=== PATIENT | male | born 1985 | race African-American/Black ===

== ENCOUNTER 2021-07-04 08:43 | Emergency (ER) | payer OTHER ==
[2021-07-04 08:52] VITALS: BP 149/84
--- NOTE | 2021-07-04 09:06 | ED Physician Documentation ---
History of Present Illness - Stated complaint Stated Complaint: RECTAL RASH - Chief complaint Chief Complaint: General - History obtained from History obtained from: Patient - History of Present Illness Timing: How many days ago (several days) - Additonal information Additional information: Patient is a 36-year-old male who presents to the emergency department stating that he has had "bumps" near his anal area. This been ongoing for the past several days. Mild itching. No burning. Tried hemorrhoid cream without relief. Denies any history of anal intercourse. Nothing makes it better or worse. Review of Systems Constitutional: denies: Fever, Chills GI: denies: Vomiting Skin: denies: Rash Musculoskeletal: denies: Neck pain, Back pain Neurologic: denies: Headache PD PAST MEDICAL HISTORY - Past Medical History Past Medical History: No - Past Surgical History Past Surgical History: No - Present Medications Home Medications: Ambulatory Orders Medication Instructions Recorded Confirmed No Known Home Medications 07/04/21 07/04/21 - Allergies Allergies/Adverse Reactions: Allergies Allergy/AdvReac Type Severity Reaction Status Date / Time No Known Drug Allergies Allergy Verified 07/04/21 08:47 - Living Situation Living Situation: reports: With family Living Arrangement: reports: At home - Social History Does the pt smoke?: No Does the pt have substance abuse?: No - Family History Family history: reports: Non contributory PD ED PE NORMAL - Vitals Vital signs reviewed: Yes - General General: Alert and oriented X 3, No acute distress - HEENT HEENT: Moist mucous membranes - Neck Neck: Supple, no meningeal sign - Respiratory Respiratory: No respiratory distress - Rectal Rectal: Other (mild anal warts) - Derm Derm: Warm and dry - Neuro Neuro: Alert and oriented X 3 - Psych Psych: Normal mood, Normal affect Results - Vitals Vitals: Vital Signs - 24 hr 07/04/21 07/04/21 08:48 09:21 Temperature 36.7 C 36.7 C Heart Rate 81 81 Respiratory 16 16 Rate Blood Pressure 149/84 H 149/84 H O2 Saturation 97 97 Oxygen O2 Source Room air PD MEDICAL DECISION MAKING - ED course Complexity details: considered differential, d/w patient ED course: Patient with anogenital warts. We will have him follow-up with his PCP for treatment. Patient counseled regarding signs and symptoms for which I believe and urgent re-evaluation would be necessary. Patient with good understanding of and agreement to plan and is comfortable going home at this time This document was made in part using voice recognition software. While efforts are made to proofread this document, sound alike and grammatical errors may occur. 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 These topical treatments are mildly effective, but cryotherapy, electro surgery or trichloracetic acid are more likely to improve the situation. Laser therapy can also be used. Please follow-up with your doctor for further treatment. Discharge Date/Time: 07/04/21 09:23
== END 2021-07-04 09:23 | disposition home or self-care (01) ==
LOC: ED 08:43
DX: A63.0 Anogenital (venereal) warts (principal)
CPT/HCPCS: 99281; 99282

== ENCOUNTER 2022-01-02 10:28 | Outpatient (CLI) | payer OTHER ==
[2022-01-02 11:10] VITALS: BP 140/94
--- NOTE | 2022-01-02 11:10 | SLEEP CARE CONSULTATION ---
Information from patient questionnaire entered by Enrique Monroy. I have reviewed and concur with the information entered by Enrique Monroy. This document represents the service I personally performed and the decisions made by me, Isabela Costa ARNP. History of Present Illness Service Date and Time: 01/02/2022 1028 Reason for Visit: New patient Chief Complaint: reports: Snoring, Excessive daytime sleepiness, Observed pauses in breathing, Fatigue, Frequent awakenings at night Date of Onset: 2-3 years Usual bedtime: [id number] Time it takes to fall asleep: not long , few minutes Snores at night: Yes Observed to quit breathing while asleep: Yes Sleeps alone due to snoring: Yes Number of times waking at night: 3 Reasons for waking at night: reports: Snoring, Gasping for air Toss, Turn, or Twitch while sleeping: Yes Recalls having dreams: No Usually gets out of bed at: 0400am; weekends 0500 Feels refreshed in the morning: No Morning headache: Yes (2-3 times a week that resolves in a couple hrs) Sleepy or fatigued during the day: Yes Ever fallen asleep while driving: No Takes day naps: No Dreams during day naps: No Prior sleep studies: No Additional HPI information: I had the pleasure of seeing TRUNG PARISI today regarding the possibility of him having a sleep disorder. His current complaints are snoring, excessive daytime sleepiness, observed pauses in breathing, fatigue and frequent night awakenings. He states he came because he is not getting much sleep because he is waking up at least four times a night. He is waking up with a very dry throat. He has seen some swelling in back of his throat. He has been told he snores loudly and has pauses in breathing that his has noted. He has woke up at least twice that he can remember gasping for air. He states he wakes up feeling tired and is very tired throughout the day. 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 Patient is and lives in [place]. Have you smoked in the past 12 months: No Alcohol use: Yes Alcohol amount and frequency: 1 cocktail every couple weeks Caffeine use: Yes Caffeine amount and frequency: 2 cups every morning Family History Family history of sleep disordered breathing: Yes Family Hx Sleep Apnea: Mother: Snoring, Sleep apnea - Treated, Father: Snoring, Sleep apnea - Treated Allergies and Home Medications Known drug allergies: No Drug allergies reviewed: Yes (NKDA) Home medication list reviewed: Yes Allergy and home medication list: Allergies No Known Drug Allergies Allergy (Verified 09/12/21 23:10) Medications: allergy medications, does not know name, takes as needed Review of Systems Weight gain over past 5 years: 30 Cardiovascular: denies: high blood pressure Respiratory: reports: shortness of breath, wheeze Neurological: reports: headaches Psychiatric: denies: anxiety, depression Ear/Nose/Throat: reports: nasal congestion, sinus problems, dry mouth/throat (occasionally in morning), wisdom teeth removed. denies: tonsillectomy Musculoskeletal: reports: back pain Immunologic: reports: allergies to food or environment (seasonal allergies) Physical Exam Vital signs obtained and entered by: ENRIQUE Anderson MA Blood Pressure: 140/94 (left arm) Cuff size: regular Heart Rate: 82 O2 Saturation: 95 Height: 5 ft 5 in Weight: 212 lb 12.8 oz Body Mass Index: 35.4 BMI Classification: Obese Neck circumference: 17 (inches) Mouth and throat: narrow oropharynx Soft palate: normal Hard palate: normal Uvula: normal Uvula visualization: 25% Mallampati Class III Tongue: normal in size Tonsils: 1+ Neck: normal w/o lymphadenopathy or thyromegaly Heart: regular rate and rhythm Lungs: clear bilaterally Impression and Plan 1. Suspected Obstructive Sleep Apnea-Hypopnea Syndrome, as suggested by a history of loud and irregular snoring, observed cessation of breath while asleep, gasping or choking in sleep, morning headache, frequent awakening during the night, unrefreshed sleep, cognitive impairment, and excessive daytime sleepiness. Narrow oropharynx and obesity are common predisposing factors for obstructive sleep apnea-hypopnea syndrome. I recommend proceeding to polysomnography to confirm the diagnosis and to assess severity. If the patient has significant sleep disordered breathing, a manual CPAP titration study will also be performed to find the optimal treatment pressure. I informed the patient of what the sleep studies involve and after some discussion, obtained agreement to proceed. The pathophysiology of obstructive sleep apnea-hypopnea syndrome was discussed with the patient and health risks of cardiovascular and cerebrovascular disease if not treated. 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 Patient agreed to plan. * Schedule polysomnography * Avoid long distance driving or driving when feeling sleepy. * Avoid alcohol, sedative and muscle relaxant around bedtime. * Attempt to lose weight. * Review instructions provided by trained office staff on how to prepare for the sleep study. * Return for follow-up after sleep study completed. Counseling Topics: Weight loss health impact Visit Type: In Office Time Spent with Patient (minutes): 31 Provider Statement: I spent 100% of the Face to Face Visit with the patient with greater than 50% spent counseling the patient and coordination of care.
== END 2022-01-02 10:29 | disposition home or self-care (01) ==
LOC: SC 10:28
PROVIDERS: ATTEND Nurse Practitioner Family
DX: R06.83 Snoring (principal); G47.8 Other sleep disorders; R06.81 Apnea, not elsewhere classified; R51.9 Headache, unspecified; G47.10 Hypersomnia, unspecified; R53.83 Other fatigue; E66.9 Obesity, unspecified; Z68.35 Body mass index [BMI] 35.0-35.9, adult
CPT/HCPCS: 99203; 99212

== ENCOUNTER 2022-01-18 20:39 | Outpatient (CLI) | payer OTHER | END 2022-01-18 20:40 | disposition home or self-care (01) | LOC: SC 20:39 | PROVIDERS: ATTEND Nurse Practitioner Family | DX: G47.33 Obstructive sleep apnea (adult) (pediatric) (principal) | CPT/HCPCS: 95810 ==

== ENCOUNTER 2022-02-20 10:53 | Outpatient (CLI) | payer OTHER ==
--- NOTE | 2022-02-20 10:45 | SLEEP CARE CONSULTATION ---
Information from patient questionnaire entered by Yolanda Monroy. I have reviewed and concur with the information entered by Yolanda Monroy. This document represents the service I personally performed and the decisions made by me, Isabela Costa ARNP. History of Present Illness Service Date and Time: 02/20/2022 1040 Initial [place] Sleepiness Scale score: 18 (12/26/2021) Current [place] Sleepiness Scale score: 21 (02/20/22) Additional HPI information: TRUNG PARISI returns via video telehealth visit for follow up and results of the recently performed polysomnography. I explained the pathophysiology behind obstructive sleep apnea. We then spent quite a bit of time discussing different treatment options. For mild obstructive sleep apnea, surgery and oral appliance are alternatives to nasal CPAP therapy but in moderate or severe cases, nasal CPAP is the most effective and reliable treatment. I reviewed the impact of weight changes on sleep apnea and strongly recommended losing weight. After some discussion, the patient opted to go with the nasal CPAP therapy. Nasal autoCPAP set at 4-15 cmH20 will be ordered with rationale explained. A manual titration study will be ordered if unable to find optimal pressure with office adjustments. I explained how CPAP machine works and what to expect when using the machine. Using CPAP every night in order to get used to it was emphasized. Patient advised to put CPAP mask on before getting into bed so as not to fall asleep without CPAP. To assist acclimation to CPAP use, it could also be used for a short time during day while reading or watching TV. The patient was instructed to call the CPAP supplier to discuss any mechanical problem that may occur. If the mask given is uncomfortable or is difficult to keep on through the night even with adjustment, contact the CPAP supplier as many will replace with another mask style if notified before 30 days. If snoring or perceives is not getting enough air or too much air from the machine, notify this office. Patient counseled not drink alcohol less than 4 hours before bedtime as it can increase snoring and apnea. Patient was cautioned about risks of drowsy driving until sleepiness symptoms resolve. Patient denies drowsy driving. Sleep Study - Results Type of Sleep Study: Polysomnography (COMPLETED 01/18/22) Prior sleep studies: No Polysomnography/Home Sleep Study results: IMPRESSION: The quality of the study is good. The patient had normal sleep efficiency. The sleep architecture was abnormal for sleep fragmentation and reduced amount of time spent in slow wave sleep (N3). Respiratory monitoring showed severe obstructive sleep apnea-hypopnea (AHI = 38.6) associated with frequent arousals, oxyhemoglobin desaturation and moderate hypoxia (shakeel oxygen saturation of 71% ). Baseline oxygen saturation was normal. The patient only slept supine during this study (supine AHI = 38.6; non-supine = 0.00). Snore was moderate to loud in intensity. There was no significant periodic leg movement of sleep. Cardiac rhythm was normal sinus rhythm without significant arrhythmia. No abnormal behavior (parasomnia) observed during the night. Allergies and Home Medications Drug allergies reviewed: Yes (NKDA) Home medication list reviewed: Yes (no changes) Review of Systems Review of systems same as previous: Yes (no changes) Physical Exam Vital signs obtained and entered by: VIA PHONE Height: 5 ft 5 in (PER PT) Weight: 185 lb (PER PT) Body Mass Index: 30.7 BMI Classification: Obese Impression and Plan 1. Obstructive Sleep Apnea-Hypopnea Syndrome, severe, with lowest oxygen saturation of 71%. Obviously this is the cause of the patients symptoms of unrefreshed sleep, and excessive daytime sleepiness. As mentioned above, the patient will be started on nasal autoCPAP therapy with pressure set at 4-15 cmH2 O. Compliance guidelines also reviewed. A copy of compliance guidelines will be given for reference at check out. Because the apnea is more severe supine, I instructed to avoid sleeping supine using pillow positioning until able to start CPAP use. 2. Hypoxemia, moderate, with a shakeel oxygen saturation of 71% and 19.9 minutes spent under 90%. His baseline oxygen saturation was normal with an average oxygen saturation of 94%. 3. Obesity, unspecified. Currently patients BMI is 30.7. Obesity increases the risk of apnea, CPAP pressure requirements and overall health risks especially cardiovascular and diabetes. Thus patient is advised to lose weight. Weight loss can be done with reducing portion size, reducing refined foods and balancing content with vegetables, fruit and whole grain foods. In addition, patient encouraged to get regular exercise. * Nasal auto CPAP therapy, pressure at 4-15 cm H2O. * Attempt to lose weight. * Avoid alcohol consumption near bedtime. * Avoid supine sleep until using CPAP. * The patient is again cautioned about driving until sleepiness completely resolves. * Return one month after CPAP obtained. I will assess response to therapy and compliance at that time. Counseling Topics: Weight loss health impact Prescriptions: Auto CPAP Visit Type: Telehealth Video Video Type: Doximity Patient Location: Home Location of Provider: Office Patient agrees and consents to this telehealth visit type: Yes Patient agrees to have their insurance billed: Yes Time Spent with Patient (minutes): 21 Provider Statement: I spent 100% of the Telehealth Video Call with the patient with greater than 50% spent counseling the patient and coordination of care.
== END 2022-02-20 10:54 | disposition home or self-care (01) ==
LOC: SC 10:53
PROVIDERS: ATTEND Nurse Practitioner Family
DX: G47.33 Obstructive sleep apnea (adult) (pediatric) (principal); R09.02 Hypoxemia; E66.9 Obesity, unspecified; Z68.30 Body mass index [BMI] 30.0-30.9, adult

== ENCOUNTER 2022-05-21 17:28 | Emergency (ER) | payer OTHER ==
[2022-05-21 18:04] LABS: RAPID STREP SCREEN Negative (Negative)
--- NOTE | 2022-05-21 18:08 | ED Physician Documentation ---
History of Present Illness - Stated complaint Stated Complaint: CHILLS,THROAT PX,COUGH - Chief complaint Chief Complaint: General - Additonal information Additional information: 37-year-old male presents to the emergency department for evaluation of 1 week cough, congestion sore throat chills and myalgias. Seen at a local walk-in clinic and tested negative for COVID. States he was given Tessalon Perles and an inhaler without relief of symptoms. Today had a fever higher than 102 and presents here. Denies any history of hypertension or diabetes. Non-smoker. Review of Systems Constitutional: reports: Fever, Myalgias, Fatigue Eyes: reports: Reviewed and negative Nose: reports: Congestion Throat: reports: Sore throat Cardiac: reports: Reviewed and negative Respiratory: reports: Dyspnea, Cough. denies: Hemoptysis, Wheezing GI: reports: Reviewed and negative : reports: Reviewed and negative PD PAST MEDICAL HISTORY - Past Medical History Respiratory: Asthma - Past Surgical History Past Surgical History: No - Present Medications Home Medications: Ambulatory Orders Medication Instructions Recorded Confirmed Albuterol Sulf [Ventolin Hfa 1 - 2 puffs INH Q4HR PRN #1 inhaler 09/13/21 05/21/22 Inhaler] Azithromycin [Zithromax] 0 mg PO DAILY #6 tablet 05/21/22 - Allergies Allergies/Adverse Reactions: Allergies Allergy/AdvReac Type Severity Reaction Status Date / Time No Known Drug Allergies Allergy Verified 05/21/22 17:36 - Social History Does the pt smoke?: No Smoking Status: Never smoker Does the pt drink ETOH?: Yes Does the pt have substance abuse?: No - POLST Patient has POLST: No PD ED PE NORMAL - General General: Alert and oriented X 3, No acute distress, Well developed/nourished - HEENT HEENT: Atraumatic, Moist mucous membranes. No: Pharynx benign (Mild posterior oropharynx erythema without exudate) - Neck Neck: Supple, no meningeal sign, No adenopathy - Cardiac Cardiac: RRR, No murmur - Respiratory Respiratory: No respiratory distress, Clear bilaterally - Abdomen Abdomen: Normal bowel sounds, Soft Results - Vitals Vitals: Vital Signs - 24 hr 05/21/22 05/21/22 17:39 17:54 Temperature 37.4 C Heart Rate 115 H Respiratory 24 18 Rate Blood Pressure 131/84 H O2 Saturation 98 99 Oxygen O2 Source Room air - Labs Labs: Laboratory Tests 05/21/22 05/21/22 17:45 17:45 Nasal Adenovirus (PCR) NOT DETECTED Nasal B. parapertussis DNA (PCR) NOT DETECTED Nasal Coronavir 229E PCR NOT DETECTED Nasal Coronavir HKU1 PCR NOT DETECTED Nasal Coronavir NL63 PCR NOT DETECTED Nasal Coronavir OC43 PCR NOT DETECTED Nasal Enterovir/Rhinovir PCR NOT DETECTED Nasal Influenza B PCR NOT DETECTED Nasal Influenza A PCR NOT DETECTED Nasal Parainfluen 1 PCR NOT DETECTED Nasal Parainfluen 2 PCR NOT DETECTED Nasal Parainfluen 3 PCR NOT DETECTED Nasal Parainfluen 4 PCR NOT DETECTED Nasal RSV (PCR) NOT DETECTED Nasal B.pertussis DNA PCR NOT DETECTED Nasal C.pneumoniae (PCR) NOT DETECTED Jaya Human Metapneumo PCR DETECTED A Nasal M.pneumoniae (PCR) NOT DETECTED Nasal SARS-CoV-2 (PCR) NOT DETECTED Group A Strep Rapid Negative - Rads (name of study) cxr Relevant Findings:: Final report received (No acute cardiopulmonary process) PD Medical Decision Making - ED course Complexity details: reviewed results, re-evaluated patient, considered differential, d/w patient ED course: 37-year-old male presents emergency department for evaluation 1 week cough congestion and sore throat. Began having fevers today higher than 102. He was seen at a local walk-in and recently tested negative for COVID-19. Here in the emergency department he appears as though he does not feel well though cardiopulmonary auscultation was entirely unremarkable. His vital signs show some mild tachycardia but no hypotension or fever. A 2 view chest x-ray shows no acute cardiopulmonary findings. Rapid strep was negative. Respiratory PCR was positive for human metapneumovirus. However given the worsening cough after 1 week with new fevers is appropriate to treat for bronchitis and therefore prescription for azithromycin is going to be sent to the pharmacy. Patient can continue Tessalon Perles and albuterol. This plan of finding was communicated with patient and his . He is discharged home in stable condition with usual emergent return precautions discussed. Departure - Departure Disposition: 01 Home, Self Care Clinical Impression: Bronchitis, Infection due to human metapneumovirus (hMPV) Prescriptions: Azithromycin [Zithromax] 0 mg PO DAILY #6 tablet Comments: You are seen today in the emergency department for a cough that has not improved over the last week and you have developed some new fevers. The chest x-rays do not show any findings of pneumonia. Your viral testing was positive for human metapneumovirus. This is a variant of a virus that causes the common cold. The rapid strep testing was negative. However because her cough has not improved after a week and you are developing new fevers we will start you on a prescription of azithromycin to help treat bronchitis. You can continue the albuterol and Tessalon Perles. You are advised stay home drink plenty of fluids. I would anticipate your symptoms are getting better over the next 5 to 7 days. If at any point you find that your symptoms are worsening, you have severe shortness of air or chest pain then please return immediately to the ER for second evaluation
--- NOTE | 2022-05-21 18:22 | XRAY Report ---
PROCEDURE: Chest 2 View X-Ray INDICATIONS: cough TECHNIQUE: 2 views of the chest were acquired. COMPARISON: None. FINDINGS: Surgical changes and devices: None. Lungs and pleura: No pleural effusions or pneumothorax. Lungs are clear. Mediastinum: Mediastinal contours are normal. Heart size is normal. Bones and chest wall: No suspicious bony abnormalities. Soft tissues appear unremarkable. IMPRESSION: Clear lungs, without infiltrates. Reviewed by: Matthew Plascencia MD on 05/21/2022 5:21 PM [facility]DT Approved by: Matthew Plascencia MD on 05/21/2022 5:21 PM AKDT Station ID: [id number]
[2022-05-21] MEDS ORDERED: AZITHROMYCIN 250 MG TABLET PO STA (18:35)
[2022-05-21 18:58] LABS: CORONAVIRUS 229E-RESP PCR NOT DETECTED; CORONAVIRUS HKU1-RESP PCR NOT DETECTED; CORONAVIRUS NL63-RESP PCR NOT DETECTED; CORONAVIRUS OC43-RESP PCR NOT DETECTED; HUMAN METAPNEUMOVIRUS DETECTED; SARS-CoV-2 -RESP PCR PANEL NOT DETECTED
[2022-05-21 18:59] LABS: B. PARAPERTUSSIS- RESP PCR PAN NOT DETECTED; B. PERTUSSIS- RESP PCR PANEL NOT DETECTED; C. PNEUMONIAE- RESP PCR PANEL NOT DETECTED; INFLUENZA A- RESP PCR PANEL NOT DETECTED; INFLUENZA B - RESP PCR PANEL NOT DETECTED; M. PNEUMONIAE- RESP PCR PANEL NOT DETECTED; PARAINFLUENZA VIRUS 1 NOT DETECTED; PARAINFLUENZA VIRUS 2 NOT DETECTED; PARAINFLUENZA VIRUS 3 NOT DETECTED; PARAINFLUENZA VIRUS 4 NOT DETECTED; RHINOVIRUS/ENTEROVIRUS NOT DETECTED; RSV- RESP PCR PANEL NOT DETECTED
[2022-05-21 19:32] VITALS: BP 130/80
== END 2022-05-21 19:30 | disposition home or self-care (01) ==
LOC: ED 17:28
DX: J40 Bronchitis, not specified as acute or chronic (principal); B97.81 Human metapneumovirus as the cause of diseases classified elsewhere; Z20.822 Contact with and (suspected) exposure to COVID-19
CPT/HCPCS: 71046; 87070; 87430; 87633; 99284; A9270

== ENCOUNTER 2022-10-08 22:04 | Emergency (ER) | payer OTHER ==
[2022-10-08 22:15] VITALS: BP 140/90; O2SAT 96
--- NOTE | 2022-10-08 23:39 | ED Physician Documentation ---
PD HPI URI - Stated complaint Stated Complaint: HEADACHE, COUGH,RUNNING NOSE - Chief complaint Chief Complaint: General - History obtained from History obtained from: Patient - Additional information Additional information: Patient presents with two other family members/household contacts who have similar symptoms. 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 He took a home COVID test today with (+) result, and he is asking about the anti-viral medication. Review of Systems Constitutional: reports: Chills, Myalgias, Fatigue, Sweats Respiratory: reports: Cough. denies: Dyspnea Neurologic: reports: Headache PD PAST MEDICAL HISTORY - Past Medical History Respiratory: Asthma - Past Surgical History Past Surgical History: No - Present Medications Home Medications: Ambulatory Orders Medication Instructions Recorded Confirmed Albuterol Sulf [Ventolin Hfa 1 - 2 puffs INH Q4HR PRN #1 inhaler 09/13/21 05/21/22 Inhaler] Azithromycin [Zithromax] 0 mg PO DAILY #6 tablet 05/21/22 - Allergies Allergies/Adverse Reactions: Allergies Allergy/AdvReac Type Severity Reaction Status Date / Time No Known Drug Allergies Allergy Verified 10/08/22 22:09 - Social History Does the pt smoke?: No Smoking Status: Never smoker Does the pt drink ETOH?: Yes Does the pt have substance abuse?: No - POLST Patient has POLST: No PD ED PE NORMAL - Vitals Vital signs reviewed: Yes - General General: Alert and oriented X 3, No acute distress, Well developed/nourished - Neck Neck: Supple, no meningeal sign - Cardiac Cardiac: RRR, No murmur - Respiratory Respiratory: No respiratory distress, Clear bilaterally Results - Vitals Vitals: Oxygen O2 Source Room air PD Medical Decision Making - ED course Complexity details: considered differential, d/w patient ED course: HPI is s/o viral syndrome and patient had (+) COVID test at home today. He is asking about the anti-viral medication options; he is given Paxlovid kit. Return precautions discussed. Instructed to use [facility] website calculator to determine when he can end isolation/return to work, etc. Departure - Departure Disposition: 01 Home, Self Care Clinical Impression: Viral syndrome Condition: Good Instructions: ED Viral Syndrome Comments: You have indicated to me that you had a positive COVID test at home. You are being provided antiviral medications to help reduce the length of symptoms of this illness as well as reduction in the likelihood of progression of the sickness. Follow the instructions that accompanied the kit that contains the antiviral medication. Google "CDC isolation" and then click on the link to "Isolation and Precautions for People with COVID-19 - CDC". This will have useful information for you as well as household contacts. There is a calculator on the page that will determine when you can end isolation. Forms: PCP List, Activity restrictions Discharge Date/Time: 10/09/22 00:36
[2022-10-09] MEDS ORDERED: NIRMATRELVIR/RITONAVIR PREPACK PO STA (00:15)
== END 2022-10-09 00:36 | disposition home or self-care (01) ==
LOC: ED 22:04
DX: B34.9 Viral infection, unspecified (principal); Z79.899 Other long term (current) drug therapy
CPT/HCPCS: 99281; 99283; J3490

== ENCOUNTER 2023-04-16 08:00 | Outpatient (CLI) | payer OTHER | END 2023-04-16 23:59 | disposition home or self-care (01) | LOC: LAB.N 08:00 | PROVIDERS: ATTEND Physician Assistant Medical | DX: R21 Rash and other nonspecific skin eruption (principal) | CPT/HCPCS: 87255 ==

== ENCOUNTER 2023-10-02 13:27 | Outpatient (CLI) | payer OTHER | END 2023-10-02 13:28 | disposition home or self-care (01) | LOC: RT 13:27 | DX: R06.2 Wheezing (principal) | CPT/HCPCS: 94060; 94727; 94729 ==

== ENCOUNTER 2023-11-01 08:15 | Outpatient (CLI) | payer OTHER ==
[2023-11-01 08:29] LABS: BASOPHILS % (AUTO) 0.4 %; EOSINOPHILS # (AUTO) 0.2 10^3/uL (0.0-0.7); EOSINOPHILS % (AUTO) 3.1 %; HCT - HEMATOCRIT 43.8 % (42.0-52.0); HGB - HEMOGLOBIN 13.9 g/dL (14.0-18.0); LYMPHOCYTES # (AUTO) 2.6 10^3/uL (1.5-3.5); LYMPHOCYTES % (AUTO) 38.8 %; MEAN CORPUSCULAR HEMOGLOBIN 25.8 pg (27.0-31.0); MEAN CORPUSCULAR HGB CONC 31.7 g/dL (32.0-36.0); MEAN CORPUSCULAR VOLUME 81.4 fL (80.0-94.0); MEAN PLATELET VOLUME 9.9 fL (7.4-11.4); MONOCYTES # (AUTO) 0.5 10^3/uL (0.0-1.0); MONOCYTES % (AUTO) 7.9 %; NEUTROPHILS # (AUTO) 3.3 10^3/uL (1.5-6.6); NEUTROPHILS % (AUTO) 49.7 %; PLT - PLATELET COUNT 237 10^3/uL (130-450); RED BLOOD COUNT 5.38 10^6/uL (4.70-6.10); RED CELL DISTRIBUTION WIDTH 13.5 % (12.0-15.0); WHITE BLOOD COUNT 6.7 x10^3/uL (4.8-10.8)
[2023-11-01 08:43] LABS: ALBUMIN 4.4 g/dL (3.2-5.5); ALBUMIN/GLOBULIN RATIO 1.6 (1.0-2.2); BILIRUBIN,TOTAL 0.3 mg/dL (0.2-1.0); CALCIUM 9.4 mg/dL (8.5-10.3); TOTAL PROTEIN 7.2 g/dL (6.4-8.9)
[2023-11-01 21:20] LABS: CHLAMYDIA TRACHOMATIS DNA NEGATIVE (NEGATIVE); NEISSERIA GONORRHOEAE DNA NEGATIVE (NEGATIVE); TRICHOMONAS VAGINALIS DNA NEGATIVE (NEGATIVE)
[2023-11-02 07:10] LABS: RPR Non Reactive (Non Reactive)
[2023-11-03 05:09] LABS: HCV AB Non Reactive (Non Reactive)
[2023-11-05 07:08] LABS: HIV SCREEN 4TH GENERATION Non Reactive (Non Reactive)
== END 2023-11-01 08:16 | disposition home or self-care (01) ==
LOC: LAB 08:15
PROVIDERS: ATTEND Physician Assistant
DX: Z91.89 Other specified personal risk factors, not elsewhere classified (principal)
CPT/HCPCS: 36415; 80053; 85025; 86592; 86695; 86696; 86803; 87255; 87389; 87491; 87591; 87661